=== PATIENT | female | born 1940 | race Hispanic/Latino ===

== ENCOUNTER → 2020-05-05 | Outpatient (CLI) | payer OTHER, MEDICARE ==
[~2020-05-05] MED LIST: REGADENOSON 0.4 MG/5 ML PF SYG IVP SCH
== END | disposition home or self-care (01) ==
LOC: SHCH 07:56
PROVIDERS: ATTEND Internal Medicine Cardiovascular Disease
DX: I25.89 Other forms of chronic ischemic heart disease (principal)
CPT/HCPCS: 78452; 93017; 96374; A9500 ×2; J2785

== ENCOUNTER 2020-06-28 05:54 | Day surgery (SDC) | payer OTHER, MEDICARE ==
[2020-06-26 12:40] LABS: BASOPHILS % (AUTO) 0.5 % (0.0-5.0); EOSINOPHILS % (AUTO) 3.4 % (0.0-8.0); HEMATOCRIT 35.5 % (36-48); LYMPHOCYTES % (AUTO) 23.4 % (21.0-51.0); MEAN CORPUSCULAR HEMOGLOBIN 29.2 pg (27.0-33.0); MEAN CORPUSCULAR HGB CONC 33.2 g/dL (32.0-36.0); MEAN CORPUSCULAR VOLUME 87.9 fL (79-99); MONOCYTES % (AUTO) 10.6 % (3.0-13.0); NEUTROPHILS % (AUTO) 61.6 % (40.0-77.0); PLATELET COUNT (AUTO) 130 K/uL (130-400); RED BLOOD CELL COUNT(AUTO) 4.04 MIL/uL (4.00-5.50); RED CELL DISTRIBUTION WIDTH 13.9 % (11.0-15.5); WHITE BLOOD COUNT (AUTO) 3.9 K/uL (4.8-10.8)
[2020-06-26 12:48] LABS: CREATININE 0.9 mg/dL (0.5-1.5); POTASSIUM 3.8 mmol/L (3.5-5.1)
[2020-06-26 12:51] LABS: APPEARANCE,URINE Cloudy (CLEAR); BILIRUBIN,URINE Negative (NEGATIVE); COLOR,URINE Yellow (YELLOW); GLUCOSE, URINE (UA) Negative (NEGATIVE); KETONES,URINE Negative (NEGATIVE); LEUKOCYTE ESTERASE ,URINE Moderate (NEGATIVE); NITRATE,URINE Negative (NEGATIVE); OCCULT BLOOD,URINE Negative (NEGATIVE); PROTEIN,URINE Negative (NEGATIVE)
[2020-06-26 13:07] LABS: INR 1.04 (0.85-1.15); PROTHROMBIN TIME 11.3 SEC (9.6-11.6)
[2020-06-26 13:08] LABS: PARTIAL THROMBOPLASTIN TIME 28.8 SEC (26.3-35.5)
[2020-06-26 13:09] LABS: BACTERIA,URINE Few /HPF (None Seen); RBC,URINE 0-1 /HPF (0-1)
[2020-06-27 10:09] VITALS: BP 150/67
[2020-06-28] VITALS (10 sets, daily range): BP systolic 147–165; BP diastolic 59–72
[~2020-06-28] VITALS: Ht 162.6 cm; Wt 86.7 kg
[~2020-06-28 05:54] MED LIST changes: +ESOM40CA54 PO; +LEVO75TA10 PO; +LISI40TA9 PO; +METO-391 PO; +PRAV40TA3 PO; -REGADENOSON 0.4 MG/5 ML PF SYG IVP SCH; +RIVA20TA PO; +SERT-438 PO
[2020-06-28] MEDS ORDERED: SODIUM CHLORIDE 0.9% 1000ML 1,000 ML IV ONE (06:00)
[2020-06-28] MEDS ORDERED: IOHEXOL-350 50ML VIAL IV ONE (07:19)
[2020-06-28] MEDS ORDERED: IOHEXOL 350 MG/ML 100ML INFUS..BTL IV ONE (07:19)
[2020-06-28] MEDS ORDERED: LIDOCAINE HCL 2% 20ML ONE (07:19)
[2020-06-28] MEDS ORDERED: NITROGLYCERIN 2 MG/VIAL VIAL IV ONE (07:23)
[2020-06-28] MEDS ORDERED: MIDAZOLAM HCL 1 MG/ML 2ML VIAL ONE (07:31)
[2020-06-28] MEDS ORDERED: HEPARIN SODIUM 1000UNIT/ML 10ML VIAL ONE (07:45)
== END 2020-06-28 12:30 | disposition home or self-care (01) ==
LOC: DAH 05:54
PROVIDERS: ATTEND Internal Medicine Cardiovascular Disease
DX: I47.2 Ventricular tachycardia (principal); I77.819 Aortic ectasia, unspecified site; I10 Essential (primary) hypertension; E78.5 Hyperlipidemia, unspecified; E03.9 Hypothyroidism, unspecified; I25.2 Old myocardial infarction; I45.10 Unspecified right bundle-branch block; I48.0 Paroxysmal atrial fibrillation; J44.9 Chronic obstructive pulmonary disease, unspecified; Z90.710 Acquired absence of both cervix and uterus; Z98.890 Other specified postprocedural states; Z82.49 Family history of ischemic heart disease and other diseases of the circulatory system; Z79.01 Long term (current) use of anticoagulants; Z79.890 Hormone replacement therapy; Z79.899 Other long term (current) drug therapy; Z85.118 Personal history of other malignant neoplasm of bronchus and lung; Z88.8 Allergy status to other drugs, medicaments and biological substances; Z90.49 Acquired absence of other specified parts of digestive tract
CPT/HCPCS: 36415; 71045; 80048; 81001; 85025; 85610; 85730; 87088; 93005; 93458; A4215; A4216; A4221; A4222; A4223 ×3; A4606; A4663; C1760; C1894; J1644; J2250; J3490; J7030; Q9965; Q9967 ×2; 99156; 99157

== ENCOUNTER 2021-03-12 05:53 | Observation (INO) | payer OTHER, MEDICARE ==
[2021-03-09 10:56] LABS: BASOPHILS % (AUTO) 0.4 % (0.0-5.0); EOSINOPHILS % (AUTO) 3.7 % (0.0-8.0); LYMPHOCYTES % (AUTO) 32.3 % (21.0-51.0); MEAN CORPUSCULAR HEMOGLOBIN 28.5 pg (27.0-33.0); MEAN CORPUSCULAR HGB CONC 31.9 g/dL (32.0-36.0); MEAN CORPUSCULAR VOLUME 89.1 fL (79-99); NEUTROPHILS % (AUTO) 52.2 % (40.0-77.0); PLATELET COUNT (AUTO) 141 K/uL (130-400); RED BLOOD CELL COUNT(AUTO) 4.04 MIL/uL (4.00-5.50); RED CELL DISTRIBUTION WIDTH 14.2 % (11.0-15.5); WHITE BLOOD COUNT (AUTO) 4.6 K/uL (4.8-10.8)
[2021-03-09 11:07] LABS: POTASSIUM 4.6 mmol/L (3.5-5.1)
[2021-03-09 11:08] LABS: INR 0.99 (0.85-1.15); PROTHROMBIN TIME 10.8 SEC (9.6-11.6)
[2021-03-09 13:48] VITALS: BP 155/69
[~2021-03-12] VITALS: Ht 162.6 cm; Wt 88.6 kg
[2021-03-12] VITALS (21 sets, daily range): BP systolic 108–151; BP diastolic 45–74
[~2021-03-12 05:53] MED LIST changes: +AEC81 PO; -RIVA20TA PO; -SERT-438 PO
[2021-03-12] MEDS: CEFAZOLIN SODIUM 1 GM VIAL IVP SCH ×3 (06:00→16:17)
[2021-03-12 07:05] LABS: APPEARANCE,URINE Cloudy (CLEAR); BILIRUBIN,URINE Negative (NEGATIVE); COLOR,URINE Yellow (YELLOW); GLUCOSE, URINE (UA) Negative (NEGATIVE); KETONES,URINE Negative (NEGATIVE); LEUKOCYTE ESTERASE ,URINE Moderate (NEGATIVE); NITRATE,URINE Negative (NEGATIVE); OCCULT BLOOD,URINE Negative (NEGATIVE); PROTEIN,URINE Negative (NEGATIVE)
[2021-03-12] MEDS ORDERED: LACTATED RINGERS 1000ML 1,000 ML IV ONE (07:07)
[2021-03-12 07:24] LABS: BACTERIA,URINE Few /HPF (None Seen); MUCUS,URINE Few LPF (None Seen); RBC,URINE 0-1 /HPF (0-1); SQUAMOUS EPITHELIAL CELL,UR Few /HPF (0-2)
[2021-03-12] MEDS ORDERED: CEFAZOLIN SODIUM 1 GM VIAL ONE ×2 (07:36→09:26)
[2021-03-12] MEDS ORDERED: ROPIVACAINE 0.5% 5MG/ML 30ML IJ ONE (08:09)
[2021-03-12] MEDS ORDERED: KETAMINE 50MG/ML SYRINGE 50 MG/ML DISP.SYRIN IV ONE (08:10)
[2021-03-12] MEDS ORDERED: LIDOCAINE PF 100MG/5ML (2%) SYRINGE 5ML ONE (08:11)
[2021-03-12] MEDS ORDERED: ROCURONIUM 10MG/1ML SYR 10 MG/ML ML ONE ×2 (08:12→10:05)
[2021-03-12] MEDS ORDERED: ONDANSETRON 4MG INJ ONE (08:12)
[2021-03-12] MEDS ORDERED: PROPOFOL 10 MG/ML 20ML VIAL IV ONE (08:12)
[2021-03-12] MEDS ORDERED: DEXAMETHASONE SOD PHOSPHATE 4 MG/ML 1ML VIAL ONE (08:12)
[2021-03-12] MEDS ORDERED: MIDAZOLAM HCL 1 MG/ML 2ML VIAL ONE (08:12)
[2021-03-12] MEDS ORDERED: DEXAMETHASONE SOD PHOSPHATE 10MG/ML 1ML VIAL ONE (08:13)
[2021-03-12] MEDS: VANCOMYCIN 1.5GM/NS 250ML IV SCH ×4 (08:30)
[2021-03-12] MEDS ORDERED: TRANEXAMIC ACID 1000MG/10ML ONE ×2 (09:17→12:00)
[2021-03-12] MEDS ORDERED: EPHEDRINE SULFATE 50 MG/ML AMPULE ONE (09:54)
[2021-03-12] MEDS ORDERED: PHENYLEPHRINE HCL 10 MG/ML 1ML VIAL IV ONE (10:21)
[2021-03-12] MEDS ORDERED: GLYCOPYRROLATE 1 MG/5 ML SYRINGE ONE (11:37)
[2021-03-12] MEDS ORDERED: NEOSTIGMINE 5MG/5ML SYR IV ONE (11:38)
[2021-03-12] MEDS ORDERED: KCL 20 MEQ ERTAB PO PRN (12:00)
[2021-03-12] MEDS: ACETAMINOPHEN 500 MG TABLET PO SCH ×2 (12:00→18:26)
[2021-03-12] MEDS ORDERED: CALCIUM CARB 500MG PO PRN (12:00)
[2021-03-12] MEDS ORDERED: ONDANSETRON 4MG INJ IVP PRN (12:00)
[2021-03-12] MEDS ORDERED: OXYCODONE HCL 5 MG TAB PO PRN ×2 (12:00)
[2021-03-12] MEDS ORDERED: TRAMADOL HCL 50 MG TABLET PO PRN (12:00)
[2021-03-12] MEDS ORDERED: POTASSIUM CHLORIDE 20MEQ/100ML 100 ML IV PRN (12:00)
[2021-03-12] MEDS ORDERED: LIDOCAINE HCL-MPF 1% 2ML VIAL IV PRN (12:00)
[2021-03-12] MEDS ORDERED: FE FUMARATE/FA/MV, MIN COMB#15 1 TAB PO PRN (12:00)
[2021-03-12] MEDS ORDERED: DiphenhydrAMINE HCL 50 MG/ML VIAL IVP PRN (12:00)
[2021-03-12] MEDS ORDERED: TEMAZEPAM 15 MG CAPSULE PO PRN (12:00)
[2021-03-12] MEDS ORDERED: 0.9%NACL 1000ML 1,000 ML IV SCH (12:00)
[2021-03-12] MEDS ORDERED: POTASSIUM CHLORIDE 10% ELIXIR 20 MEQ/15 ML UDCUP PO PRN (12:00)
[2021-03-12] MEDS ORDERED: KETOROLAC 15MG/ML VIAL (15MG/ML) IV PRN (12:00)
[2021-03-12] MEDS ORDERED: ASPIRIN 81 MG EC TAB ONE (19:21)
[2021-03-12] MEDS ORDERED: CELECOXIB 200 MG CAP ONE (19:21)
[2021-03-12] MEDS: ASPIRIN 81 MG EC TAB PO SCH (20:19)
[2021-03-12] MEDS: CELECOXIB 200 MG CAP PO SCH (20:19)
[2021-03-12] MEDS ORDERED: FAMOTIDINE 20MG TAB PO SCH (21:00)
[2021-03-13] MEDS: CEFAZOLIN SODIUM 1 GM VIAL IVP SCH (01:11)
[2021-03-13] MEDS: ACETAMINOPHEN 500 MG TABLET PO SCH ×3 (03:35→21:03)
[2021-03-13 04:05] VITALS: BP 110/59
[2021-03-13] MEDS ORDERED: LEVOTHYROXINE 75 MCG TABLET ONE (04:08)
[2021-03-13 04:10] LABS: HEMATOCRIT 29.3 % (36-48); MEAN CORPUSCULAR HEMOGLOBIN 28.6 pg (27.0-33.0); MEAN CORPUSCULAR HGB CONC 33.4 g/dL (32.0-36.0); MEAN CORPUSCULAR VOLUME 85.4 fL (79-99); RED BLOOD CELL COUNT(AUTO) 3.43 MIL/uL (4.00-5.50); WHITE BLOOD COUNT (AUTO) 7.7 K/uL (4.8-10.8)
[2021-03-13 04:44] LABS: CREATININE 0.9 mg/dL (0.5-1.5); POTASSIUM 3.8 mmol/L (3.5-5.1)
[2021-03-13] MEDS: LEVOTHYROXINE 75 MCG TABLET PO SCH (05:11)
[2021-03-13 07:56] VITALS: BP 105/82
[2021-03-13] MEDS: METOPROLOL SUCCINATE 50 MG TAB.SR.24H PO SCH (08:34)
[2021-03-13] MEDS: LISINOPRIL 40 MG TABLET PO SCH (08:34)
[2021-03-13] MEDS: Pravastatin Sodium 40 MG PO SCH (09:00)
[2021-03-13 10:21] VITALS: BP 108/67
[2021-03-13] MEDS: POLYETHYLENE GLYCOL 3350 17 GM POWD.PACK PO SCH (10:55)
[2021-03-13] MEDS: CELECOXIB 200 MG CAP PO SCH ×2 (10:56→21:03)
[2021-03-13] MEDS: ASPIRIN 81 MG EC TAB PO SCH ×2 (10:56→21:03)
[2021-03-13 15:29] VITALS: BP 111/68
[2021-03-13 19:00] VITALS: BP 100/39
[2021-03-14] VITALS: BP 119/48
[2021-03-14 04:00] VITALS: BP 98/51
[2021-03-14] MEDS: LEVOTHYROXINE 75 MCG TABLET PO SCH (05:35)
[2021-03-14] MEDS: ACETAMINOPHEN 500 MG TABLET PO SCH ×2 (05:38→13:53)
[2021-03-14 07:52] VITALS: BP 102/49
[2021-03-14] MEDS: ASPIRIN 81 MG EC TAB PO SCH (08:36)
[2021-03-14] MEDS: CELECOXIB 200 MG CAP PO SCH (08:37)
[2021-03-14] MEDS: Pravastatin Sodium 40 MG PO SCH (08:39)
[2021-03-14] MEDS: POLYETHYLENE GLYCOL 3350 17 GM POWD.PACK PO SCH (08:39)
[2021-03-14] MEDS: LISINOPRIL 40 MG TABLET PO SCH (09:00)
[2021-03-14] MEDS: METOPROLOL SUCCINATE 50 MG TAB.SR.24H PO SCH (09:00)
[2021-03-14] MEDS ORDERED: HYDR-4060 PO (10:39)
[2021-03-14 11:29] VITALS: BP 96/58
[2021-03-15] MEDS ORDERED: BISACODYL 10 MG SUPP.RECT RC PRN (12:00)
== END 2021-03-14 15:30 | disposition home health service (06) ==
LOC: DAH 05:53 → DAHIP 05:54 → DAH 05:56 → 4BH 13:35
PROVIDERS: ADMIT Orthopaedic Surgery; ATTEND Orthopaedic Surgery
DX: M87.812 Other osteonecrosis, left shoulder (principal); Z20.822 Contact with and (suspected) exposure to COVID-19; D64.9 Anemia, unspecified; E03.9 Hypothyroidism, unspecified; M75.100 Unspecified rotator cuff tear or rupture of unspecified shoulder, not specified as traumatic; M87.9 Osteonecrosis, unspecified; Z79.82 Long term (current) use of aspirin
CPT/HCPCS: 23470; 36415 ×2; 73030; 80048 ×2; 81001; 85025; 85027; 85610; 87088; 87635; 87641; 88307; 88311; 96374; 96375; 96376; 97039 ×2; 97116 ×2; 97161; 97530 ×4; A4215; A4221; A4222; A4223; A4565; A4600; A4649 ×4; A4663; A4930 ×2; A6207; C1713; C1776; C9803; G0168; G0378 ×49; J0690 ×5; J1100; J2001; J2250; J2370; J2405 ×2; J2704; J2710; J2795; J3370 ×2; J3490 ×5; J7050 ×2; J7120

== ENCOUNTER → 2023-05-07 | Outpatient (CLI) | payer OTHER, MEDICARE ==
[~2023-05-07] MED LIST changes: +HYDR-4060 PO; +REGADENOSON 0.4 MG/5 ML PF SYG IVP SCH
== END | disposition home or self-care (01) ==
LOC: RAH 09:41
PROVIDERS: ATTEND Internal Medicine
DX: I45.10 Unspecified right bundle-branch block (principal); R07.89 Other chest pain
CPT/HCPCS: 78452; 96374; 93017; J2785; A9500 ×2

== ENCOUNTER 2024-05-01 11:44 | Emergency (ER) | payer OTHER, MEDICARE ==
[~2024-05-01] VITALS: Ht 162.6 cm; Wt 82.6 kg
[~2024-05-01 11:44] MED LIST changes: -ESOM40CA54 PO; +ESOM40CA66 PO; -REGADENOSON 0.4 MG/5 ML PF SYG IVP SCH
[2024-05-01] MEDS ORDERED: CETI10TA87 PO (12:05)
[2024-05-01] MEDS ORDERED: PRED20TA3 PO (12:05)
[2024-05-01] MEDS ORDERED: BENZ-39 PO (12:05)
--- NOTE | 2024-05-01 12:07 | ERN ---
General Chief Complaint: Itching Stated Complaint: ITCHING Time Seen by MD: 11:47 History of Present Illness Initial Comments 84-year-old female, history of early-onset dementia hypertension, presents for bilateral arm and leg itching. It began today. She reports she has had this on and off for months now. She has taken courses of steroids which do relieve the discomfort. No rashes. No shortness of breath. No airway involvement. No other complaints. She has no history of liver disease no swelling or no stigmata of liver disease. Allergies: Coded Allergies: bacitracin (Unverified Allergy, Unknown, 05/04/20) ciprofloxacin (Unverified Allergy, Unknown, 05/04/20) ketoconazole (Unverified Allergy, Unknown, 05/04/20) neomycin (Unverified Allergy, Unknown, 05/04/20) polymyxin B (Unverified Allergy, Unknown, 05/04/20) Uncoded Allergies: FLU VACCINE (Allergy, Unknown, 06/27/20) Home Meds Active Scripts Hydrocodone/Acetaminophen (Hydrocodon-Acetaminophen 5-325) 1 Each Tablet, 1-2 EACH PO Q6HPRN PRN for ACUTE POST-OP PAIN, #56 TAB 0 Refills Prov:LC MENEZES MD 03/14/21 Reported Medications Aspirin (ASPIRIN 81 MG ECTAB) 81 Mg Ectab, 81 MG PO DAILY, TAB.EC 03/09/21 Pravastatin Sodium (Pravastatin Sodium) 40 Mg Tablet, 40 MG PO DAILY, TAB 06/27/20 Esomeprazole Magnesium (Esomeprazole Magnesium) 40 Mg Capsule.dr, 40 MG PO HS, CAP 06/27/20 Metoprolol Succinate (Metoprolol Succinate) 50 Mg Tab.er.24h, 50 MG PO DAILY, TAB 06/27/20 Lisinopril (Lisinopril) 40 Mg Tablet, 40 MG PO DAILY, TAB 06/27/20 Levothyroxine Sodium (Levothyroxine Sodium) 75 Mcg Tablet, 75 MCG PO DAILY, TAB 06/27/20 Past Medical History Past Medical History: Hypertension Past Surgical History: Hysterectomy ROS Dictation CONSTITUTIONAL: No chills, no fever, no weakness, no diaphoresis, no malaise. HEAD/FACE: No signs of trauma. EENT: No eye pain, no blurred vision, no tearing, no double vision, no ear pain, no ear discharge, no nose pain, no nasal congestion, no throat pain, no throat swelling, no mouth pain. RESPIRATORY: No cough, no orthopnea, no SOB, no stridor, no wheezing. CARDIOVASCULAR: No chest pain, no edema, no palpitations, no syncope. GASTROINTESTINAL/ABDOMINAL: No abdominal pain, no constipation, no diarrhea, no nausea, no vomiting. GENITOURINARY: No abnormal discharge, no dysuria, no frequent urination, no hematuria. No complaints of pain in the genitals. MUSCULOSKELETAL: No back pain, no gout, no joint pain, no joint swelling, no muscle pain, no muscle stiffness, no neck pain. INTEGUMENTARY: Itching NEUROLOGICAL/PSYCH: No anxiety, not depressed, no emotional problem, no headache, no numbness, no pre-existing deficit, no history of seizures, no tremors, no weakness. HEMATOLOGIC/LYMPHATIC: Not anemic, no history of blood clots, no apparent blee ding, no bruising, glands not swollen. All Systems Negative, Except as Noted. Physical Exam Physical Exam Dictation VITAL SIGNS: Reviewed. GENERAL APPEARANCE: Alert, oriented x3, no acute distress, HEAD AND FACE: Non-traumatic. EYES: PERRL, pink conjunctivas, eyelid no trauma, anterior chamber clear. EARS: Pinnas intact and no signs of trauma or erythema. Ear canals clear and no discharge. TMs no erythema. NOSE: No discharge, no bleeding. OROPHARYNX: Mouth normal, teeth no caries, tongue pink. Pharynx clear, no erythema. Tonsils no exudates, no abscesses noted. Mucous membrane moist. NECK: Supple, non-tender, no thyromegaly, no masses, no JVD, no bruits. BREAST: Deferred. CHEST: No tenderness, no crepitus, no paradoxical movement, no retractions. LUNGS: Clear, well-ventilated, symmetric, no rales, no wheezing, no rhonchi, no stridor, good breath sounds bilaterally. HEART: Regular rate, regular rhythm, no murmur, no gallops. VASCULAR: No peripheral edema. ABDOMEN: Soft, positive bowel sounds, nondistended, no guarding, nontender, no rebound, no masses no hepatomegaly, no splenomegaly, no Vaughn's sign, no hernias. RECTAL: Deferred. GENITAL: Deferred. NEUROLOGICAL: Normal speech, gross motor function intact, gross sensory function intact. MUSCULOSKELETAL: Neck nontender, full range of motion, back nontender, full range of motion. EXTREMITIES: Nontender, full range of motion. SKIN: Color pink, dry, no turgor, no rash, no lacerations, no abrasions, no contusions. LYMPHATICS: Deferred. MONICO CC: Itching Historian: Patient Comorbidities: Advanced age, early-onset dementia, hypertension Limitations by social determinants of health: None Vital signs are stable Clinical exam is unremarkable Differential diagnosis for itching: Liver disease, nerve disorder, skin disorder rash. I do not see any concerning findings. We will give her a dose of steroids here in the ER, and discharged with a course of steroids and cetirizine and recommend PCP follow up. Patient agrees with the plan. ED Course Orders Procedure Category Date Status Time Dexamethasone 4mg/Ml PHA 05/01/24 Transmitted 1ml Vial (Dexametha 12:00 Vital Signs Date Time Temp Pulse Resp B/P (MAP) Pulse Ox O2 Delivery O2 Flow Rate FiO2 05/01/24 11:46 98.2 74 16 100/76 98 Room Air 0 DX & DISP Disposition: Discharge Departure Impression: Primary Impression: Itching Condition: Stable Scripts Benzonatate (Tessalon Perles) 100 Mg Cap 1-2 CAP PO Q4H for cough for 5 Days, #60 CAP 0 Refills Prov: CAREY HALL DO 05/01/24 Cetirizine HCl (Cetirizine HCl) 10 Mg Tab.chew 1 TAB PO HS for allergy symptoms for 10 Days, #10 TAB 0 Refills Prov: CAREY HALL DO 05/01/24 Prednisone (Prednisone) 20 Mg Tablet 1 TAB PO BID for 5 Days, #10 TAB 0 Refills Prov: CAREY HALL DO 05/01/24 Additional Instructions: Your symptoms are consistent with pruritus, or skin itching. Avoid irritants. Avoid hot showers or baths, as they can dry your skin and worse in the itching. Using lukewarm water instead. Avoid harsh soaps, perfumes, detergents. Moisturize her skin frequently. Apply a thick, fragments free moisturizers such as Aquaphor. You can use anti-itch creams such as 1% hydrocortisone. This is [id number]. I have prescribed prednisone tabs. You can take this twice per day until the itching goes away. I have prescribed cetirizine. You can take this once per day for itching symptoms. Wear loose, breathable clothing to avoid irritating your skin. Try to avoid scratching. Drink plenty of liquids. Please follow up with the primary doctor. Referrals: ROGELIO TUCKER MD (PCP) CAREY HALL DO May 01, 2024 12:07
[2024-05-01] MEDS: dexaMETHasone SOD PHOSPHATE 4 MG/ML 1ML VIAL IM ONE (12:11)
[2024-05-01 12:17] VITALS: BP 104/80; PULSE 78; RESP 18; TEMP 98.2; O2SAT 98
== END 2024-05-01 12:33 | disposition home or self-care (01) ==
LOC: EDH 11:44
DX: L29.9 Pruritus, unspecified (principal); F03.90 Unspecified dementia, unspecified severity, without behavioral disturbance, psychotic disturbance, mood disturbance, and anxiety; I10 Essential (primary) hypertension; Z79.82 Long term (current) use of aspirin; Z79.890 Hormone replacement therapy; Z79.899 Other long term (current) drug therapy; Z88.1 Allergy status to other antibiotic agents; Z88.3 Allergy status to other anti-infective agents; Z88.7 Allergy status to serum and vaccine; Z90.710 Acquired absence of both cervix and uterus
CPT/HCPCS: 99283; 96372; J1100

== ENCOUNTER → 2024-11-23 | Outpatient (CLI) | payer OTHER ==
[~2024-11-23] MED LIST changes: +BENZ-39 PO; +CETI10TA87 PO; +LISI40TA15 PO; -LISI40TA9 PO; -PRAV40TA3 PO; +PRAV40TA62 PO; +PRED20TA3 PO
--- NOTE | 2024-11-29 15:20 | HMCIMG ---
STUDY PERFORMED: BD Bone Density DEXA Axial Skeleton TECHNIQUE: edo Dual Energy X-ray absorptiometry (DEXA) COMPARISON: None available. FINDINGS: Lumbar Spine L1-L4 Density(g/cm2): 0.878 T-score: -1.5 Z-score: 1.3 Left Femoral Neck Density(g/cm2): 0.660 T-score: -1.8 Z-score: 0.6 Total Proximal Femur Density(g/cm2): 0.898 T-score: -0.5 Z-score: 1.7 INTERPRETATION: The bone mineral density in the lumbar spine is in the osteopenia range. The bone mineral density of the left hip is in the osteopenia range. FRAX 10 year probability of fracture: Major osteoporotic fracture: 12% Hip fracture: 2.7% COMMENTS: T-scores are a means of evaluating bone mineral density relative to young adult population and are defined as the number of standard deviations of the mean. T-scores at or above -1.0 are considered normal. T-scores between -1.0 and -2.5 are consistent with osteopenia. T-scores at or below -2.5 are consistent with osteoporosis. T-score values below -2.0 are thought to be associated with an increased risk of fracture. Z-scores are related to age-matched controls. The study does not distinguish osteoporosis from other causes of decreased bone density such as osteomalacia or multiple myeloma. Therefore, if clinically indicated or Z-scores are less than -2.0, additional metabolic studies may be appropriate. RECOMMENDATIONS: National Osteoporosis Foundation (NOF) guidelines recommend initiating therapy to reduce fracture risk in women with BMD: T-Score below -2 SD T-Score Below -1.5 with other risks factors present NOF guidelines recommend all people with T score of -2.5 and below (osteoporosis) consider taken osteoporosis medication. The NOF recommends adults under age 50 need 1,000 mg of calcium and 400-800 IU of vitamin D daily. Adults 50 and over need 1,200 mg of calcium and 800-1000 IU of vitamin D daily. Effective therapies for the prevention of osteoporosis include bisphosphonates (Fosamax and Actonel) and Evista. Hormone therapy may be an option based on review of risks and benefit of treatment. People with diagnosed cases of osteoporosis or at high risk for fracture should have regular bone mineral density tests. For patients eligible for Medicare, routine testing is allowed once every 2 years. The testing frequency can be increased to one year for patients who have rapidly progressing disease, those who are receiving or discontinuing medical therapy to restore bone mass, or have additional risk factors. /C[place]
== END | disposition home or self-care (01) ==
LOC: RAH 09:51
PROVIDERS: ATTEND Internal Medicine
DX: M85.89 Other specified disorders of bone density and structure, multiple sites (principal); Z78.0 Asymptomatic menopausal state
CPT/HCPCS: 77080